=== PATIENT | female | born 1965 | race Caucasian/White ===

== ENCOUNTER 2016-04-27 17:36 | Emergency (ER) | payer MEDICARE ==
--- NOTE | 2016-04-27 18:08 | ERRECORD ---
[facility] EMERGENCY RECORD HPI PSYCHIATRIC (18:01 ) CHIEF COMPLAINT: Patient presents for evaluation of marked anxiety; just left boyfriend of one year. HISTORIAN: History provided by patient, denies suicidal ideations. SEVERITY: Maximum severity of symptoms moderate, Currently symptoms are moderate. TIME COURSE: Sudden onset of symptoms. ROS (18:02 ) CONSTITUTIONAL: Negative constitutional review of systems. EYES: Negative eye review of systems. ENT: Negative ears, nose, throat review of systems. CARDIOVASCULAR: Negative cardiovascular review of systems. RESPIRATORY: Negative respiratory review of systems. GI: Negative gastrointestinal review of systems. GENITOURINARY FEMALE: Negative genitourinary review of systems. MUSCULOSKELETAL: Negative musculoskeletal review of systems. SKIN: Negative skin review of systems. NEUROLOGIC: Negative neurologic review of systems. ENDOCRINE: Negative endocrine review of systems. NOTES: All systems reviewed, negative except as described above. PAST MEDICAL HISTORY (17:45 JPAR) MEDICAL HISTORY: Past medical history includes history of diabetes, Type II, on insulin, with neuropathy, Past medical history includes history of hyperlipidemia, high cholesterol, Past medical history includes history of hypertension, which has been treated, Past medical history includes history of obesity. FEMALE SURGICAL HISTORY: tubal ligation, Surgical history of appendectomy, Date of surgery 1989. Blocked bowel, surgery. PSYCHIATRIC HISTORY: Bipolar, Anxiety. SOCIAL HISTORY: Patient denies alcohol use, Patient denies drug use, Patient has no smoking history. KNOWN ALLERGIES ketorolac tromethamine (Unconfirmed) lithium carbonate: Reaction: Anaphylaxis, Severity: Mild, Source: Patient RisperDAL: Reaction: Anaphylaxis, Severity: Mild, Source: Patient Toradol: Reaction: Hives, Severity: Mild, Source: Patient tramadol HCl CURRENT MEDICATIONS busPIRone: TABLET : Strength - 30 mg : ORAL Patient Dose: 1 tab(s) Oral 2 times a day. (18:13 JPAR) carvedilol: TABLET : Strength - 6.25 mg : ORAL Patient Dose: 1 tab(s) Oral 2 times a day. (18:13 JPAR) HumaLOG: &a-1R&a+25V*p+0X*r4991E*c202B*c15G*c2P*p-0X&a-25V&a+1R Name: Tessa Bowie : 1965 F50 MedRec: [id number] AcctNum: [id number] Prepared: MonApr 27, 2016 18:19 by Interface Page 1 of 3 pMD [facility] EMERGENCY RECORD CARTRIDGE (ML) : Strength - 100 unit/mL : SUBCUTANEOUS Patient Dose: Unknown.Sliding Scale if needed. (18:14 JPAR) Lasix: TABLET : Strength - 40 mg : ORAL Patient Dose: 1 tab(s) Oral once a day. (18:14 JPAR) Levemir Flexpen: INSULIN PEN (ML) : Strength - 100 unit/mL (3 mL) : SUBCUTANEOUS Patient Dose: 42 units Subcutaneous once a day. (18:14 JPAR) ziprasidone HCl: CAPSULE : Strength - 80 mg : ORAL Patient Dose: 1 tab(s) Oral 2 times a day. (18:15 JPAR) gabapentin: TABLET : Strength - 600 mg : ORAL Patient Dose: 1 tab(s) Oral once a day. (18:16 JPAR) Vimovo: TABLET,IMMEDIATE & DELAY RELEASE,BIPHASE : Strength - 500 mg-20 mg : ORAL Patient Dose: 1 tab(s) Oral 2 times a day. (18:16 JPAR) zolpidem: TABLET : Strength - 10 mg : ORAL Patient Dose: 1 tab(s) Oral once a day (at bedtime). (18:16 JPAR) QUEtiapine: TABLET : Strength - 300 mg : ORAL Patient Dose: 1 tab(s) Oral once a day. (18:17 JPAR) VITAL SIGNS (17:46 JPAR) VITAL SIGNS: BP: 188/90, Pulse: 102, Resp: 18, Temp: 97.6 (Oral), O2 sat: 99 on Room Air, Time: 04/27/2016 17:46. PHYSICAL EXAM (18:02 SHAN) CONSTITUTIONAL: Patient afebrile, Pulse normal, Blood pressure normal, Respiratory rate normal, Patient appears non toxic, Patient appears pain free, Patient alert and oriented to person, place and time. HEAD: Head exam included findings of head atraumatic, normocephalic. EYES: Eye exam normal, Eye exam included findings of eyelids normal to inspection, Pupils equally round and reactive to light, Extraocular muscles intact. ENT: ENT exam normal, Pharynx exam normal, Uvula exam normal, Tonsil exam normal. NECK: Neck exam normal, Neck exam included findings of normal range of motion, Trachea midline. RESPIRATORY CHEST: Respiratory and chest exam normal, Chest exam included findings of chest movement symmetrical, Chest expansion equal, Percussion normal. CARDIOVASCULAR: Cardiovascular assessment normal, Cardiovascular exam included findings of heart rate regular rate and rhythm, Heart &a-1R&a+25V*p+0X*m0281F*c202B*c15G*c2P*p-0X&a-25V&a+1R Name: Tessa Bowie : 1965 F50 MedRec: [id number] AcctNum: [id number] Prepared: MonApr 27, 2016 18:19 by Interface Page 2 of 3 pMD [facility] EMERGENCY RECORD sounds normal. ABDOMEN FEMALE: Abdominal exam normal, Abdominal exam included findings of abdomen nontender, Bowel sounds normal. BACK: Back exam normal. UPPER EXTREMITY: Upper extremity exam normal, Upper extremity exam included findings of inspection normal, Range of motion normal. LOWER EXTREMITY: Lower extremity exam normal, Lower extremity exam included findings of inspection normal, Range of motion normal. NEURO: Neuro exam normal. SKIN: Skin exam normal. PSYCHIATRIC: Psychiatric exam normal, Psychiatric exam included findings of patient oriented to person place and time, Normal affect, Judgment normal, Insight normal. Is however, quite anxious, having trouble keeping thoughts straight; no harmful ideations expressed. PROBLEM LIST No recorded problems DIAGNOSIS (18:00 NERY) FINAL: PRIMARY: acute anxiety. PRESCRIPTION (18:00 NERY) Xanax: TABLET : 1 mg : ORAL : Quantity: 1 Unit: tab(s) Route: ORAL Schedule: See Notes Dispense: 6 Unit: tab(s) May substitute. Refills: No Refills . NOTES: 1/2 to 1 tab up to three times a day No Refills. DISPOSITION PATIENT: Disposition Type: Discharge, Disposition: *Discharge Home. (18:00 NERY) Patient left the department. (18:12 LG) Heredia: LG=Paramraffaele, RN, Ravi GABRIEL=MD Lucina, Nam &a-1R&a+25V*p+0X*l5541G*c202B*c15G*c2P*p-0X&a-25V&a+1R Name: Tessa Bowie : 1965 F50 MedRec: [id number] AcctNum: [id number] Prepared: MonApr 27, 2016 18:19 by Interface Page 3 of 3 pMD MTDD
--- NOTE | 2016-04-27 18:14 | PICIS ---
[facility] EMERGENCY RECORD TRIAGE (MonApr 27, 2016 17:40 JPAR) TRIAGE NOTES: Anxious for 2 days. (MonApr 27, 2016 17:40 JPAR) PATIENT: NAME: Tessa Bowie, AGE: 50, GENDER: female, : Mon1965, TIME OF GREET: MonApr 27, 2016 17:37, PREFERRED LANGUAGE: Bhutanese, ETHNICITY: Not or , ECODE BILLING MAP: [facility], SSN: [id number], KG WEIGHT: 113.40, PHONE: , , , PERSON ID: [id number], PCP: [facility]. (MonApr 27, 2016 17:40 JPAR) Zip Code: [address]. (17:56) COMPLAINT: ANXIETY. (MonApr 27, 2016 17:40 JPAR) ADMISSION: URGENCY: 4 Non Urgent, ADMISSION SOURCE: Home, TRANSPORT: CAR, BED: TRIAGE. (MonApr 27, 2016 17:40 JPAR) ASSESSMENT: Assessment: Break up with , moving to [facility] in 7 days, having anxiety about it., Symptoms began 2 days, Symptoms began 2 days ago. (17:45 JPAR) SIRS SCORING: Heart Rate 55-109 (0), Temp range 96.8-101.1 (0), respiratory rate 12-24 (0), Mental Status altered: no (0), Infection or Suspected Infection: No. (17:45 JPAR) TRIAGE SCREENING: Patient denies suicidal ideation, Patient denies presence of domestic violence. (17:45 JPAR) PROVIDERS: TRIAGE NURSE: Ravi Casas RN. (MonApr 27, 2016 17:40 JPAR) KNOWN ALLERGIES ketorolac tromethamine (Unconfirmed) lithium carbonate: Reaction: Anaphylaxis, Severity: Mild, Source: Patient RisperDAL: Reaction: Anaphylaxis, Severity: Mild, Source: Patient Toradol: Reaction: Hives, Severity: Mild, Source: Patient tramadol HCl CURRENT MEDICATIONS busPIRone: TABLET : Strength - 30 mg : ORAL Patient Dose: 1 tab(s) Oral 2 times a day. (18:13 JPAR) carvedilol: TABLET : Strength - 6.25 mg : ORAL Patient Dose: 1 tab(s) Oral 2 times a day. (18:13 JPAR) HumaLOG: CARTRIDGE (ML) : Strength - 100 unit/mL : SUBCUTANEOUS Patient Dose: Unknown.Sliding Scale if needed. (18:14 JPAR) Lasix: TABLET : Strength - 40 mg : ORAL Patient Dose: 1 tab(s) Oral once a day. (18:14 JPAR) Levemir Flexpen: INSULIN PEN (ML) : Strength - 100 unit/mL (3 mL) : SUBCUTANEOUS Patient Dose: 42 units Subcutaneous once a day. (18:14 JPAR) &a-1R&a+25V*p+0X*t9199G*c202B*c15G*c2P*p-0X&a-25V&a+1R Name: Tessa Bowie : 1965 F50 MedRec: [id number] AcctNum: [id number] Prepared: MonApr 27, 2016 18:25 by Interface Page 1 of 5 pMD [facility] EMERGENCY RECORD ziprasidone HCl: CAPSULE : Strength - 80 mg : ORAL Patient Dose: 1 tab(s) Oral 2 times a day. (18:15 JPAR) gabapentin: TABLET : Strength - 600 mg : ORAL Patient Dose: 1 tab(s) Oral once a day. (18:16 JPAR) Vimovo: TABLET,IMMEDIATE & DELAY RELEASE,BIPHASE : Strength - 500 mg-20 mg : ORAL Patient Dose: 1 tab(s) Oral 2 times a day. (18:16 JPAR) zolpidem: TABLET : Strength - 10 mg : ORAL Patient Dose: 1 tab(s) Oral once a day (at bedtime). (18:16 JPAR) QUEtiapine: TABLET : Strength - 300 mg : ORAL Patient Dose: 1 tab(s) Oral once a day. (18:17 JPAR) VITAL SIGNS (17:46 JPAR) VITAL SIGNS: BP: 188/90, Pulse: 102, Resp: 18, Temp: 97.6 (Oral), O2 sat: 99 on Room Air, Time: 04/27/2016 17:46. NURSING ASSESSMENT: PSYCH/SOCIAL (17:40 JPAR) CONSTITUTIONAL: Patient arrives ambulatory, Gait steady, History obtained from patient, Patient appears, anxious, Patient cooperative, Patient alert, Oriented to person, place and time, Skin warm, Skin dry, Skin normal in color, Mucous membranes pink, Mucous membranes moist, Patient complains of Anxiety, recent breakup/divorce. PSYCH/SOCIAL: Psychiatric/social assessment findings include affect, anxious, no complaint of visual hallucinations, no complaint of auditory hallucinations, no complaint of tactile hallucinations, no suicidal ideations, no homicidal ideations, no reported overdose. SUICIDE RISK ASSESSMENT TOOL: Suicide Risk Assessment findings: Mental State (Low risk):, none or mild depression, sadness, no psychotic symptoms, feels hopeful about the future, none or mild anger, hostility, Suicide Attempt or Suicidal Thoughts (Low risk):, no suicidal thoughts, Substance Disorder (Low risk):, no use of substances, Corroborative History (Low risk):, able to access information, Strengths and Support (Low risk):, Reflective Practice (Low risk):, high assessment confidence, low changeability, established good rapport, good engagement with patient, Suicide Risk: None, no evidence of current risk to the person, This person's risk level in not highly changeable, No, there are no factors that indicate a level of uncertainty in this risk assessment, indicating an assessment confidence. SAFETY: Side rails up, Cart/Stretcher in lowest position, Call light within reach, Hospital ID band on. &a-1R&a+25V*p+0X*c2081H*c202B*c15G*c2P*p-0X&a-25V&a+1R Name: Tessa Bowie Calixto : 1965 F50 MedRec: [id number] AcctNum: [id number] Prepared: MonApr 27, 2016 18:25 by Interface Page 2 of 5 pMD [facility] EMERGENCY RECORD NURSING PROCEDURE: DISCHARGE NOTE (18:05 JPAR) DISCHARGE: Patient discharged to home, ambulating without assistance, family driving, accompanied by other family member, Summary of Care printed/ provided, Patient requested and was provided an electronic copy of Discharge Instructions, Transition record given to patient, Discharge instructions given to patient, Simple or moderate discharge teaching performed, Prescriptions given and instructions on side effects given, Name of prescription(s) given: Xanax, Above person(s) verbalized understanding of discharge instructions and follow-up care, Patient treated and evaluated by physician. BELONGINGS: Belongings and valuables with patient at time of discharge include:, Belongings remain with patient, Valuables remain with patient. SAFETY: Side rails up, Cart/Stretcher in lowest position, Family at bedside, Call light within reach, Hospital ID band on. NURSING PROCEDURE: NURSE NOTES (17:40 JPAR) NURSES NOTES: Notes: Pt did not bring her meds with her, was asked to have son bring them to her. HPI PSYCHIATRIC (18:01 SHAN) CHIEF COMPLAINT: Patient presents for evaluation of marked anxiety; just left boyfriend of one year. HISTORIAN: History provided by patient, denies suicidal ideations. SEVERITY: Maximum severity of symptoms moderate, Currently symptoms are moderate. TIME COURSE: Sudden onset of symptoms. ROS (18:02 SHAN) CONSTITUTIONAL: Negative constitutional review of systems. EYES: Negative eye review of systems. ENT: Negative ears, nose, throat review of systems. CARDIOVASCULAR: Negative cardiovascular review of systems. RESPIRATORY: Negative respiratory review of systems. GI: Negative gastrointestinal review of systems. GENITOURINARY FEMALE: Negative genitourinary review of systems. MUSCULOSKELETAL: Negative musculoskeletal review of systems. SKIN: Negative skin review of systems. NEUROLOGIC: Negative neurologic review of systems. ENDOCRINE: Negative endocrine review of systems. NOTES: All systems reviewed, negative except as described above. PAST MEDICAL HISTORY (17:45 JPAR) MEDICAL HISTORY: Past medical history includes history of diabetes, Type II, on insulin, with neuropathy, Past medical history includes history of hyperlipidemia, high cholesterol, Past medical history includes history of hypertension, which has been treated, Past medical history includes history of obesity. FEMALE SURGICAL HISTORY: tubal ligation, Surgical history &a-1R&a+25V*p+0X*g3072A*c202B*c15G*c2P*p-0X&a-25V&a+1R Name: Tessa Bowie : 1965 F50 MedRec: [id number] AcctNum: [id number] Prepared: MonApr 27, 2016 18:25 by Interface Page 3 of 5 pMD [facility] EMERGENCY RECORD of appendectomy, Date of surgery 1989. Blocked bowel, surgery. PSYCHIATRIC HISTORY: Bipolar, Anxiety. SOCIAL HISTORY: Patient denies alcohol use, Patient denies drug use, Patient has no smoking history. PHYSICAL EXAM (18:02 [facility]) CONSTITUTIONAL: Patient afebrile, Pulse normal, Blood pressure normal, Respiratory rate normal, Patient appears non toxic, Patient appears pain free, Patient alert and oriented to person, place and time. HEAD: Head exam included findings of head atraumatic, normocephalic. EYES: Eye exam normal, Eye exam included findings of eyelids normal to inspection, Pupils equally round and reactive to light, Extraocular muscles intact. ENT: ENT exam normal, Pharynx exam normal, Uvula exam normal, Tonsil exam normal. NECK: Neck exam normal, Neck exam included findings of normal range of motion, Trachea midline. RESPIRATORY CHEST: Respiratory and chest exam normal, Chest exam included findings of chest movement symmetrical, Chest expansion equal, Percussion normal. CARDIOVASCULAR: Cardiovascular assessment normal, Cardiovascular exam included findings of heart rate regular rate and rhythm, Heart sounds normal. ABDOMEN FEMALE: Abdominal exam normal, Abdominal exam included findings of abdomen nontender, Bowel sounds normal. BACK: Back exam normal. UPPER EXTREMITY: Upper extremity exam normal, Upper extremity exam included findings of inspection normal, Range of motion normal. LOWER EXTREMITY: Lower extremity exam normal, Lower extremity exam included findings of inspection normal, Range of motion normal. NEURO: Neuro exam normal. SKIN: Skin exam normal. PSYCHIATRIC: Psychiatric exam normal, Psychiatric exam included findings of patient oriented to person place and time, Normal affect, Judgment normal, Insight normal. Is however, quite anxious, having trouble keeping thoughts straight; no harmful ideations expressed. EVENTS TRANSFER: Triage to Emergency Triage. (MonApr 27, 2016 17:40 JPAR) Emergency Triage to Emergency Room -03. (17:45 JPAR) Removed from Emergency Emergency Room -03. (18:12 JPAR) PROBLEM LIST No recorded problems DIAGNOSIS (18:00 [facility]) &a-1R&a+25V*p+0X*m7779P*c202B*c15G*c2P*p-0X&a-25V&a+1R Name: Tessa Bowie : 1965 F50 MedRec: [id number] AcctNum: [id number] Prepared: MonApr 27, 2016 18:25 by Interface Page 4 of 5 pMD [facility] EMERGENCY RECORD FINAL: PRIMARY: acute anxiety. DISPOSITION PATIENT: Disposition Type: Discharge, Disposition: *Discharge Home. (18:00 NERY) Patient left the department. (18:12 LG) INSTRUCTION (18:01 NERY) DISCHARGE: ANXIETY REACTION. SPECIAL: 1. use the nerve pill sparingly 2. get in to see the psychiatrist soon. PRESCRIPTION (18:00 NERY) Xanax: TABLET : 1 mg : ORAL : Quantity: 1 Unit: tab(s) Route: ORAL Schedule: See Notes Dispense: 6 Unit: tab(s) May substitute. Refills: No Refills . NOTES: 1/2 to 1 tab up to three times a day No Refills. IMAGING (18:10 JPJE) *SUPPLY CHARGE SHEET: Image captured from scanner. *DISCHARGE INSTRUCTIONS RECEIPT: Image captured from scanner. ADMIN (18:03 NERY) DIGITAL SIGNATURE: MD Verdugo Stanley. MD Verdugo Stanley. Heredia: LG=AL Casas, Ravi GABRIEL=MD Verdugo Stanley &a-1R&a+25V*p+0X*i6813L*c202B*c15G*c2P*p-0X&a-25V&a+1R Name: Francie Bowiesa De Luna : 1965 F50 MedRec: [id number] AcctNum: [id number] Prepared: MonApr 27, 2016 18:25 by Interface Page 5 of 5 pMD MTDD
== END 2016-04-27 18:05 | disposition home or self-care (01) ==
LOC: NAV ERS 17:36
DX: F41.9 Anxiety disorder, unspecified (principal); E11.9 Type 2 diabetes mellitus without complications; E78.5 Hyperlipidemia, unspecified; E78.00 Pure hypercholesterolemia, unspecified; I10 Essential (primary) hypertension; Z79.4 Long term (current) use of insulin; Z79.899 Other long term (current) drug therapy
CPT/HCPCS: 99283